=== PATIENT | male | born 1950 | race Caucasian/White ===

== ENCOUNTER 2018-05-10 12:13 | Inpatient (IN) | payer MEDICARE, MEDICAID ==
[~2018-05-10] VITALS: Ht 167.6 cm; Wt 66.7 kg
[2018-05-10] MEDS ORDERED: ONDANSETRON HCL 4MG/2ML INJ IV STA (12:38)
[2018-05-10] MEDS ORDERED: LEVOFLOXACIN 500MG PREMIX 100 ML IV ONE (12:45)
[2018-05-10] MEDS ORDERED: SODIUM CHLORIDE 0.9% 1000ML BAG (SEPSIS BOLUS) IV ONE (12:45)
[2018-05-10] MEDS ORDERED: PIPERACILLIN/TAZ 3.375G PREMIX 50 ML IV ONE (12:45)
[2018-05-10] MEDS ORDERED: ONDANSETRON HCL 4MG/2ML INJ IV ONE (12:45)
[2018-05-10 13:08] LABS: BG BASE EXCESS 4.1 mmol/L (-2.0-2.0); BG CARBOXYHEMOGLOBIN 1.4 % (0.5-1.5); BG DEOXYHEMOGLOBIN 2.2 % (0.0-5.0); BG HCO3 ACT 27.9 mmol/L (22.0-26.0); BG METHEMOGLOBIN 0.2 % (0.0-1.5); BG OXYGEN SATURATION 97.8 % (92.0-98.5); BG OXYHEMOGLOBIN 96.2 % (94.0-97.0); BG PCO2 39.1 mmHg (35.0-45.0); BG PH 7.472 (7.350-7.450); BG PO2 102.1 mmHg (75.0-100.0); BG SAMPLE SITE RIGHT BRACHIAL; BG TOTAL HEMOGLOBIN 15.8 g/dL (12.0-18.0); BG VENT MODE ROOM AIR
[2018-05-10] MEDS ORDERED: DEXTROSE 50% WATER 50ML SYRINGE IV ONE ×4 (13:15→16:15)
[2018-05-10] MEDS ORDERED: ENALAPRIL 2.5MG/2ML VIAL 2ML IV ONE (13:30)
[2018-05-10] MEDS ORDERED: DEXT 10% WATER 1,000 ML IV SCH (14:00)
[2018-05-10 15:31] LABS: CLARITY URINE CLEAR (CLEAR); COLOR URINE YELLOW (YELLOW); KETONES URINE NEGATIVE (NEGATIVE); LEUKOCYTE ESTERASE URINE NEGATIVE (NEGATIVE); NITRITE URINE NEGATIVE (NEGATIVE); OCCULT BLOOD URINE 2+ (NEGATIVE); PH URINE 5.5 (4.5-8.0); PROTEIN URINE 2+ (NEGATIVE); SPECIFIC GRAVITY URINE 1.021 (1.005-1.030); UROBILINOGEN URINE 0.2 E.U./dL (0.2-1.0)
[2018-05-10 16:01] LABS: BASOPHILS % 0.2 % (0.0-2.0); EOSINOPHILS % 0.7 % (0.0-5.0); HEMATOCRIT. 40.7 % (42.0-52.0); HEMOGLOBIN. 14.2 g/dL (14.0-18.0); LYMPHOCYTES % 7.7 % (20.0-50.0); MEAN CORPUSCULAR HEMOGLOBIN 30.8 pg (28.0-32.0); MEAN CORPUSCULAR VOLUME 88.2 fL (80.0-94.0); MEAN PLATELET VOLUME 8.6 fl (7.4-10.4); NEUTROPHILS % 85.4 % (40.0-76.0); PLATELET 191 x1000/uL (130-400); RED BLOOD CELL COUNT 4.62 mill/uL (4.7-6.1); RED CELL DISTRIBUTION WIDTH 13.2 % (11.6-14.6)
[2018-05-10 16:06] LABS: CHLORIDE 104 mEq/L (98-107)
[2018-05-10 16:08] LABS: INR 1.1; PARTIAL THROMBOPLASTIN TIME 25.2 sec (23.4-31.0); PROTHROMBIN TIME 10.9 sec (9.1-11.1)
[2018-05-10 16:16] LABS: CREATINE KINASE 90 IU/L (39-308)
[2018-05-10 16:19] LABS: CREATINE KINASE MB FRACTION 2.1 ng/mL (0.5-3.6)
[2018-05-10] MEDS ORDERED: MAGNESIUM 1 G PREMIX 100 ML IV ONE (16:30)
[2018-05-10] MEDS ORDERED: KCL 20MEQ/100ML PREMIX 100 ML IV ONE (16:30)
[2018-05-10] MEDS ORDERED: DEXTROSE 50% WATER 50ML SYRINGE IV PRN (20:00)
[2018-05-10] MEDS ORDERED: ONDANSETRON HCL 4MG/2ML INJ IV PRN (20:00)
[2018-05-10] MEDS ORDERED: ACETAMINOPHEN 325MG TABLET PO PRN (20:00)
[2018-05-10] MEDS ORDERED: MAGNESIUM 2 G PREMIX 50 ML IV ONE (20:00)
[2018-05-10] MEDS ORDERED: MAGNESIUM/ALUMINUM HYDROXIDE/SIMETHICONE 30ML UDC PO PRN (20:00)
[2018-05-10] MEDS ORDERED: BLOOD SUGAR DIAGNOSTIC STRIP TEST SCH (20:00)
[2018-05-10] MEDS ORDERED: HYDRALAZINE 20MG/ML VIAL IV PRN (20:00)
[2018-05-10] MEDS ORDERED: FAMOTIDINE 20MG TABLET PO SCH (21:00)
[2018-05-10] MEDS: DEXT 10% WATER 1,000 ML IV SCH ×2 (21:26→22:26)
[2018-05-10 22:00] VITALS: BP_SYST 155; BP_SYST 161; BP_DIAS 86; BP_DIAS 87
[2018-05-10 22:13] VITALS: BP 150/79
[2018-05-10 22:30] VITALS: BP 142/80
[2018-05-10 23:00] VITALS: BP 147/92
[2018-05-10 23:30] VITALS: BP 141/77
[2018-05-10] MEDS: BLOOD SUGAR DIAGNOSTIC STRIP TEST SCH (23:55)
[2018-05-11] VITALS (48 sets, daily range): BP systolic 101–166; BP diastolic 60–95
[2018-05-11] MEDS ORDERED: MAGNESIUM 1 G PREMIX 100 ML IV NR
[2018-05-11] MEDS ORDERED: POTASSIUM CHLORIDE 20MEQ TABLET SR PO NR
[2018-05-11] MEDS: DEXT 10% WATER 1,000 ML IV SCH ×2 (00:10→00:11)
[2018-05-11] MEDS ORDERED: LISI-186 MT (00:38)
[2018-05-11] MEDS ORDERED: INSU100I28 SQ (00:38)
[2018-05-11] MEDS ORDERED: CHOL100044 MT (00:38)
[2018-05-11] MEDS ORDERED: KCL 20MEQ/100ML PREMIX 100 ML IV NR (02:00)
[2018-05-11] MEDS: BLOOD SUGAR DIAGNOSTIC STRIP TEST SCH ×7 (03:04→18:27)
[2018-05-11] MEDS ORDERED: POTASSIUM CHLORIDE INJ 40 MEQ in DEXT 5% WATER 250 ML IV NR (05:00)
[2018-05-11 05:17] LABS: BASOPHILS % 0.6 % (0.0-2.0); EOSINOPHILS % 1.1 % (0.0-5.0); HEMATOCRIT. 43.6 % (42.0-52.0); HEMOGLOBIN. 15.1 g/dL (14.0-18.0); LYMPHOCYTES % 9.3 % (20.0-50.0); MEAN CORPUSCULAR HEMOGLOBIN 30.8 pg (28.0-32.0); MEAN CORPUSCULAR VOLUME 88.8 fL (80.0-94.0); MEAN PLATELET VOLUME 8.4 fl (7.4-10.4); MONOCYTES % 5.7 % (2.0-8.0); NEUTROPHILS % 83.3 % (40.0-76.0); PLATELET 166 x1000/uL (130-400); RED BLOOD CELL COUNT 4.91 mill/uL (4.7-6.1); RED CELL DISTRIBUTION WIDTH 13.2 % (11.6-14.6)
[2018-05-11 05:22] LABS: CHLORIDE 97 mEq/L (98-107)
[2018-05-11 05:27] LABS: PHOSPHORUS 1.6 mg/dL (2.5-4.9)
[2018-05-11] MEDS: INSULIN LISPRO 100 UNITS/ML SUBCUT SCH ×3 (06:00→18:48)
[2018-05-11] MEDS ORDERED: FUROSEMIDE 40MG/4ML VIAL IVP NR (07:15)
[2018-05-11] MEDS: FAMOTIDINE 20MG/2ML VIAL IV SCH ×2 (08:04→21:51)
[2018-05-11] MEDS ORDERED: INSULIN LISPRO 100 UNITS/ML SUBCUT SCH (08:20)
[2018-05-11] MEDS ORDERED: POTASSIUM PHOS,M-BASIC-D-BASIC 15 MMOL in DEXT 5% WATER 245 ML IV ONE (09:00)
[2018-05-11] MEDS: ALBUTEROL (0.083%) 2.5MG/3ML NEB HHN SCH ×2 (12:57→19:58)
[2018-05-11] MEDS: ENOXAPARIN 40MG/0.4ML SYR SUBCUT SCH (15:26)
[2018-05-11] MEDS: ASPIRIN 81MG TABLET PO SCH (16:14)
[2018-05-12] VITALS (49 sets, daily range): BP systolic 103–166; BP diastolic 58–119
[2018-05-12] MEDS: INSULIN LISPRO 100 UNITS/ML SUBCUT SCH ×6 (01:00→18:02)
[2018-05-12] MEDS: ALBUTEROL (0.083%) 2.5MG/3ML NEB HHN SCH ×4 (02:00→20:47)
[2018-05-12 05:24] LABS: BASOPHILS % 0.5 % (0.0-2.0); HEMATOCRIT. 41.6 % (42.0-52.0); HEMOGLOBIN. 14.4 g/dL (14.0-18.0); LYMPHOCYTES % 13.5 % (20.0-50.0); MEAN CORPUSCULAR HEMOGLOBIN 30.7 pg (28.0-32.0); MEAN PLATELET VOLUME 8.8 fl (7.4-10.4); MONOCYTES % 6.3 % (2.0-8.0); NEUTROPHILS % 78.7 % (40.0-76.0); PLATELET 159 x1000/uL (130-400); RED BLOOD CELL COUNT 4.67 mill/uL (4.7-6.1); RED CELL DISTRIBUTION WIDTH 13.1 % (11.6-14.6)
[2018-05-12 05:33] LABS: CHLORIDE 97 mEq/L (98-107)
[2018-05-12 05:44] LABS: PHOSPHORUS 2.6 mg/dL (2.5-4.9)
[2018-05-12 05:46] LABS: LDL CHOLESTEROL 65 mg/dL (5-100)
[2018-05-12 05:48] LABS: HDL CHOLESTEROL 38 mg/dL (40-59)
[2018-05-12] MEDS: FAMOTIDINE 20MG/2ML VIAL IV SCH ×2 (09:11→21:23)
[2018-05-12] MEDS: ASPIRIN 81MG TABLET PO SCH (09:11)
[2018-05-12] MEDS: BLOOD SUGAR DIAGNOSTIC STRIP TEST SCH ×2 (11:03→17:58)
[2018-05-12] MEDS: ENOXAPARIN 40MG/0.4ML SYR SUBCUT SCH (14:26)
[2018-05-12] MEDS: THIAMINE HCL 100MG TABLET PO SCH (18:02)
[2018-05-12] MEDS: INSULIN GLARGINE UD 100 UNITS/ML SYR SUBCUT SCH (22:16)
[2018-05-13] VITALS (37 sets, daily range): BP systolic 106–172; BP diastolic 60–90
[2018-05-13] MEDS: BLOOD SUGAR DIAGNOSTIC STRIP TEST SCH ×4 (00:31→17:46)
[2018-05-13] MEDS ORDERED: INSULIN LISPRO 100 UNITS/ML SUBCUT NR (01:30)
[2018-05-13] MEDS: ALBUTEROL (0.083%) 2.5MG/3ML NEB HHN SCH ×4 (03:07→19:58)
[2018-05-13] MEDS: INSULIN LISPRO 100 UNITS/ML SUBCUT SCH ×3 (05:25→17:35)
[2018-05-13] MEDS: THIAMINE HCL 100MG TABLET PO SCH (08:59)
[2018-05-13] MEDS: ASPIRIN 81MG TABLET PO SCH (08:59)
[2018-05-13] MEDS: FAMOTIDINE 20MG/2ML VIAL IV SCH ×2 (08:59→21:33)
[2018-05-13] MEDS: INSULIN GLARGINE UD 100 UNITS/ML SYR SUBCUT SCH ×2 (09:52→21:36)
[2018-05-13] MEDS: ENOXAPARIN 40MG/0.4ML SYR SUBCUT SCH (14:33)
[2018-05-14] VITALS (40 sets, daily range): BP systolic 123–165; BP diastolic 64–96
[2018-05-14] MEDS: INSULIN LISPRO 100 UNITS/ML SUBCUT SCH ×5 (00:23→23:40)
[2018-05-14] MEDS: ALBUTEROL (0.083%) 2.5MG/3ML NEB HHN SCH ×4 (01:06→21:21)
[2018-05-14] MEDS: BLOOD SUGAR DIAGNOSTIC STRIP TEST SCH ×5 (06:01→23:19)
[2018-05-14] MEDS: FAMOTIDINE 20MG/2ML VIAL IV SCH ×2 (09:33→20:41)
[2018-05-14] MEDS: THIAMINE HCL 100MG TABLET PO SCH (09:33)
[2018-05-14] MEDS: ASPIRIN 81MG TABLET PO SCH (09:33)
[2018-05-14] MEDS: INSULIN GLARGINE UD 100 UNITS/ML SYR SUBCUT SCH ×2 (09:53→23:38)
[2018-05-14 10:18] LABS: HEMATOCRIT. 39.5 % (42.0-52.0); HEMOGLOBIN. 13.4 g/dL (14.0-18.0); MEAN CORPUSCULAR VOLUME 90.9 fL (80.0-94.0); MEAN PLATELET VOLUME 8.3 fl (7.4-10.4); PLATELET 171 x1000/uL (130-400); RED BLOOD CELL COUNT 4.34 mill/uL (4.7-6.1); RED CELL DISTRIBUTION WIDTH 13.3 % (11.6-14.6)
[2018-05-14 10:25] LABS: CHLORIDE 102 mEq/L (98-107)
[2018-05-14 10:31] LABS: PHOSPHORUS 2.6 mg/dL (2.5-4.9)
[2018-05-14 10:58] LABS: PLATELET ESTIMATE NORMAL
[2018-05-14] MEDS: CLONIDINE 0.1MG TABLET PO PRN (15:09)
[2018-05-14] MEDS: ENOXAPARIN 40MG/0.4ML SYR SUBCUT SCH (15:09)
[2018-05-15] VITALS (12 sets, daily range): BP systolic 130–163; BP diastolic 71–80
[2018-05-15] MEDS: ALBUTEROL (0.083%) 2.5MG/3ML NEB HHN SCH ×2 (02:07→21:06)
[2018-05-15] MEDS: BLOOD SUGAR DIAGNOSTIC STRIP TEST SCH ×4 (06:01→21:53)
[2018-05-15] MEDS: INSULIN LISPRO 100 UNITS/ML SUBCUT SCH ×4 (06:33→21:54)
[2018-05-15] MEDS: FAMOTIDINE 20MG/2ML VIAL IV SCH ×2 (09:18→20:46)
[2018-05-15] MEDS: THIAMINE HCL 100MG TABLET PO SCH (09:18)
[2018-05-15] MEDS: ASPIRIN 81MG TABLET PO SCH (09:18)
[2018-05-15] MEDS: INSULIN GLARGINE UD 100 UNITS/ML SYR SUBCUT SCH ×2 (09:35→21:54)
[2018-05-15] MEDS: CLONIDINE 0.1MG TABLET PO PRN (09:57)
[2018-05-15] MEDS: ENOXAPARIN 40MG/0.4ML SYR SUBCUT SCH (15:15)
[2018-05-16] VITALS (12 sets, daily range): BP systolic 145–163; BP diastolic 69–92
[2018-05-16] MEDS: ALBUTEROL (0.083%) 2.5MG/3ML NEB HHN SCH ×4 (01:44→20:51)
[2018-05-16] MEDS: INSULIN LISPRO 100 UNITS/ML SUBCUT SCH ×4 (05:33→23:31)
[2018-05-16] MEDS: BLOOD SUGAR DIAGNOSTIC STRIP TEST SCH ×4 (05:33→23:31)
[2018-05-16] MEDS ORDERED: CEFAZOLIN 1000MG PREMIX 50 ML IV PRN (06:00)
[2018-05-16] MEDS ORDERED: CEFAZOLIN 1000MG PREMIX 50 ML IV SCH (07:30)
[2018-05-16] MEDS: DEXT 5%/0.9% NACL 1,000 ML IV SCH ×2 (07:51→23:30)
[2018-05-16 08:12] LABS: HEMATOCRIT. 39.6 % (42.0-52.0); HEMOGLOBIN. 13.4 g/dL (14.0-18.0); MEAN CORPUSCULAR HEMOGLOBIN 30.9 pg (28.0-32.0); MEAN CORPUSCULAR VOLUME 91.3 fL (80.0-94.0); PLATELET 179 x1000/uL (130-400); RED BLOOD CELL COUNT 4.34 mill/uL (4.7-6.1); RED CELL DISTRIBUTION WIDTH 13.2 % (11.6-14.6)
[2018-05-16 08:19] LABS: INR 1.1; PROTHROMBIN TIME 10.8 sec (9.1-11.1)
[2018-05-16] MEDS: FAMOTIDINE 20MG/2ML VIAL IV SCH (08:35)
[2018-05-16] MEDS: THIAMINE HCL 100MG TABLET PO SCH (08:35)
[2018-05-16 09:43] LABS: PLATELET ESTIMATE NORMAL
[2018-05-16 11:02] LABS: CHLORIDE 102 mEq/L (98-107)
[2018-05-16] MEDS ORDERED: MIDAZOLAM HCL 5 MG/ML VIAL IV PRN (16:02)
[2018-05-16] MEDS ORDERED: FENTANYL CITRATE/PF 50MCG/ML 2ML VIAL IV PRN (16:03)
[2018-05-16] MEDS ORDERED: FENTANYL CITRATE/PF 50MCG/ML 2ML VIAL ONE (16:08)
[2018-05-16] MEDS ORDERED: MIDAZOLAM HCL 5 MG/5 ML VIAL ONE (16:08)
[2018-05-16] MEDS ORDERED: SODIUM CHLORIDE 0.9% 10ML VIAL ONE (16:15)
[2018-05-16] MEDS ORDERED: SIMETHICONE 40 MG/0.6 ML 30ML ONE (16:15)
[2018-05-16] MEDS: METOCLOPRAMIDE HCL 10MG/2ML VIAL IV SCH ×2 (18:07→23:32)
[2018-05-16] MEDS: SUCRALFATE 1 G/10 ML UDC GT SCH ×2 (18:07→23:31)
[2018-05-17] VITALS (12 sets, daily range): BP systolic 122–152; BP diastolic 66–82
[2018-05-17] MEDS: ALBUTEROL (0.083%) 2.5MG/3ML NEB HHN SCH ×4 (01:04→19:52)
[2018-05-17] MEDS: SUCRALFATE 1 G/10 ML UDC GT SCH ×3 (05:05→17:54)
[2018-05-17] MEDS: BLOOD SUGAR DIAGNOSTIC STRIP TEST SCH ×3 (05:05→17:26)
[2018-05-17] MEDS: METOCLOPRAMIDE HCL 10MG/2ML VIAL IV SCH ×3 (05:05→17:54)
[2018-05-17] MEDS: INSULIN LISPRO 100 UNITS/ML SUBCUT SCH ×3 (05:20→17:55)
[2018-05-17] MEDS ORDERED: PANTOPRAZOLE SODIUM 40 MG/VIAL IV SCH (09:00)
[2018-05-17] MEDS: THIAMINE HCL 100MG TABLET PO SCH (09:31)
[2018-05-17] MEDS: DEXT 5%/0.9% NACL 1,000 ML IV SCH (09:40)
== END 2018-05-17 21:05 | DRG 64 ==
LOC: EDBD 13:37 → ER 13:37 → ENRESERV 15:44 → CANRESERV 15:44 → EDBEDREQTM 17:09 → EDBEDREQ 17:09 → CVICU 18:08 → EDBEDREQTM 18:11 → EDBEDREQSVC 18:11 → ENRESERV 20:34 → 5EST 05-14 19:56
PROVIDERS: ADMIT Internal Medicine; ATTEND Internal Medicine
PROC: 0DH63UZ Insertion of Feeding Device into Stomach, Percutaneous Approach (ICD-10-PCS; principal; 2018-05-16)
PROC: 0DB68ZX Excision of Stomach, Via Natural or Artificial Opening Endoscopic, Diagnostic (ICD-10-PCS; 2018-05-16)
DX: I63.9 Cerebral infarction, unspecified (principal); E43 Unspecified severe protein-calorie malnutrition; G92 Toxic encephalopathy; E11.649 Type 2 diabetes mellitus with hypoglycemia without coma; E87.6 Hypokalemia; L89.150 Pressure ulcer of sacral region, unstageable; L89.320 Pressure ulcer of left buttock, unstageable; L89.310 Pressure ulcer of right buttock, unstageable; E83.42 Hypomagnesemia; F03.90 Unspecified dementia, unspecified severity, without behavioral disturbance, psychotic disturbance, mood disturbance, and anxiety; I10 Essential (primary) hypertension; I25.10 Atherosclerotic heart disease of native coronary artery without angina pectoris; J44.9 Chronic obstructive pulmonary disease, unspecified; K28.9 Gastrojejunal ulcer, unspecified as acute or chronic, without hemorrhage or perforation; K29.70 Gastritis, unspecified, without bleeding; R13.10 Dysphagia, unspecified; Z86.73 Personal history of transient ischemic attack (TIA), and cerebral infarction without residual deficits; Z98.49 Cataract extraction status, unspecified eye; Z68.23 Body mass index [BMI] 23.0-23.9, adult
CPT/HCPCS: 36415; 36600; 70551; 71045; 80048; 80061; 82375; 82550; 82553; 82805; 82962; 83605; 83735; 83880; 84100; 84134; 84145; 84484; 86850; 86900; 92610; 93005; 93306; 93880; 93970; 94640; 95816; 96365; 96366; 96368; 96375; 99291; C9113; J0690; J1650; J1815; J1940; J1956; J2250; J2405; J2543; J2765; J3010; J3475; J3480; J3490; J7030; J7042; J7060; J7611; A4315